=== PATIENT | male | born 1980 | race Caucasian/White ===

== ENCOUNTER 2025-08-04 07:59 | Emergency (ER) | payer SELFPAY ==
[2025-08-04 08:09] VITALS: BP 136/86; PULSE 86; RESP 16; TEMP 36.6; O2SAT 98; BMI 28.8
--- NOTE | 2025-08-04 08:11 | ED_ITS ---
HPI - Neuro Symptoms/Deficit 2 General: Chief Complaint: Neuro Symptoms/Deficit Stated Complaint: Left side Headache diolated left eye this morning Time Seen by Provider: 08/04/25 08:04 History of Present Illness: 44-year-old man with no significant past medical history presents emergency room with a right coronal headache and some blurred vision. He noticed that his left pupil seem to be larger than his right. No other focal motor deficits. No slurred speech. No altered mental status. No fevers. He says he feels like there is something in his eye possibly. Related Data Home Medications ?Medication ?Instructions ?Recorded ?Confirmed ibuprofen 200 mg tablet (Advil) 800 mg PO Q6H PRN Feve r Or Pain 08/04/25 08/04/25 naproxen sodium 220 mg tablet 440 mg PO Q8H PRN Fever Or Pain 08/04/25 08/04/25 (Aleve) Previous Rx's ?Medication ?Instructions ?Recorded polymyxin B sulfate 10,000 1 drp ophthalmic (eye) Q3H 7 days 08/04/25 unit-trimethoprim 1 mg/mL eye drops #10 mL Allergies Allergy/AdvReac Type Severity Reaction Status Date / Time No Known Allergies Allergy Verified 08/04/25 08:12 Review of Systems 2 Narrative: Constitutional symptoms: Negative except as documented in HPI. Skin symptoms: Negative except as documented in HPI. Eye symptoms: Negative except as documented in HPI. ENMT symptoms: Negative except as documented in HPI. Respiratory symptoms: Negative except as documented in HPI. Cardiovascular symptoms: Negative except as documented in HPI. Gastrointestinal symptoms: Negative except as documented in HPI. Genitourinary symptoms: Negative except as documented in HPI. Musculoskeletal symptoms: Negative except as documented in HPI. Neurologic symptoms: Negative except as documented in HPI. Psychiatric symptoms: Negative except as documented in HPI. Endocrine symptoms: Negative except as documented in HPI. Physical Exam 2 Narrative: EXAM NARRATIVE: General: Alert, no acute distress. Skin: Warm, dry. Head: Normocephalic, atraumatic. Neck: Supple, trachea midline. Eye: Extraocular movements are intact. Left pupil is slightly larger than the right but it is reactive. Some slight scleral reddening Ears, nose, mouth and throat: mucosa moist. Cardiovascular: Regular, Normal peripheral perfusion. Respiratory: Lungs are clear to auscultation, respirations are non-labored, breath sounds are equal, Symmetrical chest wall expansion. Gastrointestinal: Soft, Nontender, Non distended Musculoskeletal: Normal ROM, no deformity. Neurological: Alert and oriented, No focal neurological deficit observed. Psychiatric: Cooperative, appropriate mood & affect. Course 2 Vital Signs: Vital signs: Vital Signs Temperature 97.9 F 08/04/25 08:09 Pulse Rate 69 08/04/25 10:54 Respiratory Rate 14 08/04/25 10:12 Blood Pressure 119/85 08/04/25 10:54 Pulse Oximetry 99 08/04/25 10:54 Oxygen Delivery Me thod Room Air 08/04/25 08:42 MDM - Neuro Symptoms/Deficit Medical Decision Making Medical decision making Patient's reason for coming to the emergency room: Headache, eye symptoms Social determinants: Patient is employed I reviewed the patient's medical record. This is the patient's first visit to this emergency room. I reviewed the patient's current home meds Patient takes no chronic medications and has no known chronic medical problems Alternate historians: None Differential diagnosis for patient with focal neurologic deficit(s) includes but not limited to and based on the above HPI, review of systems and physical exam: ischemic stroke, hemorrhagic stroke and embolic stroke secondary to atrial fibrillation), TIA, Burroughs's palsy, metabolic encephalopathy with previous stroke. Orders placed to evaluate differential diagnosis based on the above differential, HPI and physical exam. I also think perhaps this patient just has an injury to his left eye and headache. Consultation: I spoke with Dr. Valencia. She was not on-call but she kindly took my call. She does recommend going ahead and doing a CTA. And basic workup. She recommends Depakote to treat headache. CT head: No acute intracranial process. No intracranial hemorrhage, no evidence of infarct. No evidence of acute fracture. This was reviewed and interpreted by myself the emergency room physician. I also reviewed the radiology report. CTA of the head and neck: No acute abnormalities but there is a small AVM. Radiology recommends follow-up and I discussed this with the patient. This was reviewed and interpreted by myself the emergency room physician. I also reviewed the radiology report. Lab Review: Laboratory results were reviewed and interpreted by myself the emergency room physician. Lab work is unremarkable. No leukocytosis. No anemia. No renal failure. Procedure: UV fluorescein examination of the eye tetracaine applied to the affected eye. once significant analgesia occurred fluorescein dye was applied to the eye Examination with juares lamp reveals no obvious corneal abrasions. No foreign bodies. Assessment of risk: Level of risk: Low risk patient Hospitalization considerations: At this time no consideration of hospitalization Reexamination: Pupils appear more the same size at this point. Headache has improved with Depakote. Assessment and plan: Headache Eye pain ? Depakote in the emergency room. Headache improved - Discharged home - Discussed plan with patient. Answered any questions. - Evaluation and treatment of this problem were appropriate in the emergency setting. Lab Data 08/04/25 08:20 08/04/25 08:[address] 08/04/25 08:12 IMPRESSION: 1. No evidence of intracranial hemorrhage or mass effect. 2. No acute intracranial findings. Notified Catherine Morrison MD at 08/04/2025 9:02 AM. Head/Neck CTA 08/04/25 08:12 IMPRESSION: 1. No significant ICA stenosis. No evidence of carotid dissection. 2. LEFT dominant vertebral artery. 3. No flow-limiting intracranial stenosis. 4. 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 Recommend follow-up neurosurgery/neurology. Small associated cortical draining vein Notified Catherine Morrison MD at 08/04/2025 9:29 AM. Laboratory Results WBC 8.96 10^3/uL (3.29-11.43) 08/04/25 08:20 RBC 5.28 10^6/uL (3.85-5.65) 08/04/25 08:20 Hgb 15.10 g/dL (11.27-16.99) 08/04/25 08:20 Hct 45.2 % (37-53) 08/04/25 08:20 MCV 85.6 fl (82-101) 08/04/25 08:20 MCH 28.6 pg (27-33) 08/04/25 08:20 MCHC 33.4 g/dL (30-55) 08/04/25 08:20 RDW 12.4 % (12.1-15.1) 08/04/25 08:20 Plt Count 323 10^3/cmm (157-399) 08/04/25 08:20 MPV 9.8 fL (7.4-10.4) 08/04/25 08:20 Neut % (Auto) 74.5 % 08/04/25 08:20 Lymph % (Auto) 16.3 % 08/04/25 08:20 [place] % (Auto) 7.0 % 08/04/25 08:20 Eos % (Auto) 1.0 % 08/04/25 08:20 Baso % (Auto) 0.8 % 08/04/25 08:20 Neut # (Auto) 6.67 10^3/uL (1.8-7.7) 08/04/25 08:20 Lymph # (Auto) 1.5 10^3/uL (0.8-4.8) 08/04/25 08:20 [place] # (Auto) 0.6 10^3/uL (0.2-0.9) 08/04/25 08:20 Eos # (Auto) 0.1 10^3/uL (0.0-0.8) 08/04/25 08:20 Baso # (Auto) 0.1 10^3/uL (0.0-0.1) 08/04/25 08:20 Nucleated RBC % (auto) 0 % 08/04/25 08:20 Nucleated RBCs # 0.0 /100WBC 08/04/25 08:20 PT 12.80 SECONDS (12.1-14.9) 08/04/25 08:20 INR 0.90 (0.8-1.2) 08/04/25 08:20 APTT 26.1 SECONDS (23.9-36.7) 08/04/25 08:20 Sodium 139 mmol/L (136-145) 08/04/25 08:20 Potassium 4.2 mmol/L (3.5-5.1) 08/04/25 08:20 Chloride 102 mmol/L (98-107) 08/04/25 08:20 Carbon Dioxide 27 mmol/L (22-29) 08/04/25 08:20 Anion Gap 14.2 (5-19) 08/04/25 08:20 BUN 13 mg/dL (6-20) 08/04/25 08:20 Creatinine 1.0 mg/dL (0.7-1.2) 08/04/25 08:20 GFR Calculation 80.8 mL/min (90-130) L 08/04/25 08:20 Glucose 104 mg/dL (65-115) 08/04/25 08:20 Calculated Osmolality 288 mOsm/kg (285-295) 08/04/25 08:20 Calcium 9.0 mg/dL (8.5-10.5) 08/04/25 08:20 Total Bilirubin 0.4 mg/dL (0.15-1.2) 08/04/25 08:20 AST 18 U/L (0-40) 08/04/25 08:20 ALT 17 U/L (0-41) 08/04/25 08:20 Alkaline Phosphatase 73 U/L (40-130) 08/04/25 08:20 Total Protein 7.6 g/dL (6.6-8.7) 08/04/25 08:20 Albumin 4.6 g/dL (3.5-5.2) 08/04/25 08:20 Globulin 3.0 g/dL (1.3-4.6) 08/04/25 08:20 All radiology interpretation(s) finalized by discharge Discharge Plan Discharge Patient Disposition: Home Clinical Impression: Acute eye pain, Headache Condition: Stable Prescriptions: New polymyxin B sulf-trimethoprim 10,000 unit- 1 mg/mL drops 1 drp ophthalmic (eye) Q3H 7 Days Qty: 10 0RF Rx Instructions: while awake; do not exceed 6 doses in 24 hours No Action naproxen sodium [Aleve] 220 mg Tablet 440 mg PO Q8H PRN (Reason: Fever Or Pain) ibuprofen [Advil] 200 mg Tablet 800 mg PO Q6H PRN (Reason: Fever Or Pain) Discharge Orders: Discharge ED (Routine); Ordered 08/04/25 Ordered By: Catherine Morrison Discharge Diet: Usual diet Discharge Activity: Increase activity as tolerated Patient Instructions: Eye Pain (ED), General Headache (ED), Opioid Safety, Pain Management, Patient Portal & Srikanth Instructions Activity Restrictions/Additional Instructions: On your head CT there was an incidental finding of an AVM. Radiology recommends that you have follow-up with neurology or neurosurgery in the near future. Discussed this with your primary provider Thank you for choosing [facility] for your healthcare needs today. You have been screened and evaluated and felt safe for discharge. Health conditions do change or evolve sometimes and as such it is important that you follow up with your Primary Doctor to be re checked, 3-5 days is a general good time frame for follow up. You are always welcome to return to the ED for re assessment if your symptoms are worsening or you have new concerns Stand Alone Forms: Work/School Release Print Language: Cape Verdean Coding Level of Care Code ED Hoop Punch And Coiler Operator for Chris Ortega
--- NOTE | 2025-08-04 08:12 | CT_ITS ---
WS: [id number] CT HEAD TECHNIQUE: Noncontrast CT of the head obtained from the skullbase to the vertex. Stroke alert not called. CLINICAL INFORMATION: LEFT eye dilation. Headache. Left eye pain. COMPARISON: None. DLP: [address] scans at [facility] use at least one of these dose optimization techniques: automated exposure control; mA and/or kV adjustment per patient size (includes targeted exams where dose is matched to clinical indication); or iterative reconstruction. FINDINGS: No evidence of intracranial hemorrhage or mass effect. Ventricular system and basal cisterns are patent. No extra-axial fluid collections. No evidence of mass or mass effect. Normal swift-white differentiation. Paranasal sinuses and mastoid air cells are well aerated. .Normal visualized soft tissues. CT/CT head thrombolytic 96777 IMPRESSION: 1. No evidence of intracranial hemorrhage or mass effect. 2. No acute intracranial findings. Notified Catherine Morrison MD at 08/04/2025 9:02 AM.
--- NOTE | 2025-08-04 08:12 | CT_ITS ---
WS: [id number] CTA HEAD AND NECK TECHNIQUE: Contrast enhanced CTA of the head and neck with coronal and sagittal reformatted images and maximum intensity projection (MIP) images. NASCET criteria utilized. CLINICAL INFORMATION: Possible stroke COMPARISON: None. DLP: 510.[address] scans at [facility] use at least one of these dose optimization techniques: automated exposure control; mA and/or kV adjustment per patient size (includes targeted exams where dose is matched to clinical indication); or iterative reconstruction. FINDINGS: RIGHT: RIGHT common carotid artery is patent. No significant RIGHT ICA stenosis. RIGHT ICA is patent to the skull base. LEFT: LEFT common carotid artery is patent. No significant LEFT ICA stenosis. LEFT ICA is patent to the skull base. INTRACRANIAL CTA: LEFT dominant vertebral artery. Smaller but patent RIGHT vertebral artery. Basilar artery is patent. Persistent RIGHT FIELD REVIEWER. Normal vascularity to the FIELD REVIEWER territory bilaterally. Normal vascularity to the KAMARI and MCA territories bilaterally. No evidence of proximal flow-limiting intracranial stenosis. Tonsillar calcifications. Prior postoperative changes ACDF C5-6. Small vascular malformation RIGHT frontal lobe anteriorly suspicious for a small AVM nidus measuring 4.6 mm. Small associated cortical draining vein. Recommend follow-up neurosurgery/neurology. CT/CT angio headneck* 64161/43094 IMPRESSION: 1. No significant ICA stenosis. No evidence of carotid dissection. 2. LEFT dominant vertebral artery. 3. No flow-limiting intracranial stenosis. 4. 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 Recommend follow-up neurosurge ry/neurology. Small associated cortical draining vein Notified Catherine Morrison MD at 08/04/2025 9:29 AM.
[2025-08-04 08:41] LABS: INR 0.90 (0.8-1.2); Partial Thromboplastin Time 26.1 SECONDS (23.9-36.7); Prothrombin Time 12.80 SECONDS (12.1-14.9)
[2025-08-04 08:42] VITALS: BP 120/80; PULSE 73; RESP 16; O2SAT 98
[2025-08-04] MEDS: iohexol 350 mg/mL 500 mL Btl (per mL) IV (08:42)
[2025-08-04 08:43] LABS: Hematocrit 45.2 % (37-53); Hemoglobin 15.10 g/dL (11.27-16.99); Mean Corpuscular HGB Conc 33.4 g/dL (30-55); Mean Corpuscular Hemoglobin 28.6 pg (27-33); Mean Corpuscular Volume 85.6 fl (82-101); Nucleated Red Blood Cells % 0 %; Platelet Count 323 10^3/cmm (157-399); Red Blood Count 5.28 10^6/uL (3.85-5.65); White Blood Count 8.96 10^3/uL (3.29-11.43)
[2025-08-04 08:45] LABS: Alanine Aminotransferase 17 U/L (0-41); Albumin Level 4.6 g/dL (3.5-5.2); Alkaline Phosphatase 73 U/L (40-130); Anion Gap 14.2 (5-19); Aspartate Amino Transferase 18 U/L (0-40); Blood Urea Nitrogen 13 mg/dL (6-20); Calcium 9.0 mg/dL (8.5-10.5); Carbon Dioxide 27 mmol/L (22-29); Chloride 102 mmol/L (98-107); Globulin 3.0 g/dL (1.3-4.6); Glucose 104 mg/dL (65-115); Osmolality Calculated 288 mOsm/kg (285-295); Potassium 4.2 mmol/L (3.5-5.1); Sodium 139 mmol/L (136-145); Total Protein 7.6 g/dL (6.6-8.7)
[2025-08-04] MEDS: valproic acid inj 500 MG in sodium chloride 0.9% (plus) 50 ML 200 MG IV (08:52)
[2025-08-04 10:12] VITALS: BP 134/66; PULSE 70; RESP 14; O2SAT 98
[2025-08-04] MEDS: tetracaine 0.5% Op Soln 4 mL Btl 1 DROP EYE-RIGHT (10:16)
--- OUTSIDE RECORDS SUMMARY | 2025-08-04 10:18 | XMS_ITS | Data Portability ---
Author Organization [facility] [place] Acuna, [employer] Address [address] [address] Assessment No assessment recorded. Plan of Treatment Reminders Order Date Submit Date Provider Last Modified By Organization Details Last Modified Time Details Appointments ACUTE VISIT 025 07:20AM WALK-IN Not available Not available Not available Lab None recorde d. Referral None recorde d. Procedures None recorde d. Surgeries None recorde d. Imaging None recorde d. Medication Orders None recorde d. Patient TargetsNo targets recorded. Patient Instructions Encounter Date Encounter Id Patient Instructions Last Modified By Organization Details Last Modified Time 08/04/2025 [id number] After discussion with still having headache and concerns- I will send to ER ephraim carbajal [email or web address] Not available 08/04/2025 08:56:32 Reason for Referral None Reported. Procedures Surgical History Date Name Laterality Status Provider Name and Address Organization Details Recorded Time [facility]/04/20[facility] 08:31:39 Back Surgery [facility] 08/04/2025 08:31:46 operative procedure on upper extremity [facility] 08/04/2025 08:32:05 Imaging Results None recorded. Procedure Notes None recorded. Medical Equipment None Reported. Allergies Allergen ID Allergen Name Allergen Category Reaction Reaction Severity Criticality Documentation Date Start Date Code Code System Note Provider Name and Address Organization Details Recorded Time 54435 acetamino phen / oxycodone medicatio n Not available Not available Not available 08/04/2025 31968 3 RxNorm Nya iniguez [facility] 08:30:42 Medications Name Sig Start Date Stop Date Status Note LastModified by Organization Details LastModified Time Aleve active Not Available Not Availa ble Not Available IBU active Not Available Not Availa ble Not Available Vitals Date Recorded Body height Body mass index (BMI) Body weight Oxygen saturation Oxygen saturation in Arterial blood by Pulse oximetry Heart rate Respiratory rate Body temperature Systolic And Diastolic Provider Name and Address Organization Details Last Updated DateTime 5 175.26 cm 28.8 kg/m2 62384.5 1 g 97 % 97 % 90 /min 16 /min 98.5 [degF] 140/100 mm[Hg] Nya Najera [facility] 08:34:50 Social History Question Answer Notes LastModified by Organizat ion Details LastModified Time Tobacco Smoking Status Current Every Day Smoker Nya iniguez [facility] 08/04/2025 08:31:11 What Was The Date Of Your Most Recent Tobacco Screening? 08/04/2025 [email or web address] Information not available 08/04/2025 Sex: Unknown Functional Status None recorded. Mental Status None recorded. Family History Nothing Reported. Medical History No medical history recorded. Past Encounters Encounter ID Performer Location Encounter Start Date Encounter Closed Date Diagnosis/Indication Diagnosis SNOMED-CT Code Diagnosis ICD10 Code Diagnosis IMO Codes Diagnosis Note [id number] KARIS BARDALES APRN [facility] ([facility]) [address] [place] [address] 08/04/2025 08:21:29 08/04/2025 08:57:57 Acute headache 348984309 R51.9 [id number] Health Concerns Section Related Observation LastModified by Organization Detai ls LastModified Time None Recorded Concern Status LastModified by Organization Details LastModified Time None Recorded Advance Directives Directive None Recorded Payers Insurance Date Sequence Insurance Name Policy Number Policy Springer Covered Member ID Springer Member ID Guarantor Name 08/04/2025 1 *SELF PAY* Leatha Mcdonald Notes Date Note Type Note Provider Name and Address Organization Details Recorded Time 08/04/2025 text/html Eye PainReported by Patient walk in patientpatient is here today for a headache that started on his left side of his head that started at 1am, patient said that his left eye is hurting and is dialated. Patient said that work this morning they took his blood pressure and it was high. KARIS BARDALES, CHIEF STEWARD/STEWARDESS [address] [place], [address], [facility] 08/04/2025 08:57:21
--- OUTSIDE RECORDS SUMMARY | 2025-08-04 10:19 | XMS_ITS | Continuity of Care Document ---
Author Organization [facility] [place] Acuna, [facility] ([facility]) Address [address] [place] [address] Assessment No assessment recorded. Plan of Treatment [...] By Organization Details Last Modified Time 08/04/2025 [id number] After discussion with still having headache and concerns- I will send to ephraim carbajal [email or web address] Not available 08/04/2025 08:56:32 Reason for Referral None Reported. Procedures Surgical History Date Name Laterality Status Provider Name and Address Organization Details Recorded Time operation on neck [facility] 08/04/2025 08:31:39 Back Surgery [facility] [place] [facility] 08/04/2025 08:31:46 operative procedure on upper extremity completed [place] [facility] 08/04/2025 08:32:05 Imaging Results None recorded. Procedure Notes None recorded. Medical Equipment None Reported. Allergies Allergen ID Allergen Name Allergen Category Reaction Reaction Severity Criticality Documentation Date Start Date Code Code System Note Provider Name and Address Organization Details Recorded Time 75535 acetamino phen / oxycodone medicatio n Not available Not available Not available 08/04/2025 85365 3 RxNorm Nya iniguez [facility] 08:30:42 Medications Name Sig Start Date [...] Updated DateTime 5 175.26 cm 28.8 kg/m2 08286.5 1 g 97 % 97 % 90 /min 16 /min 98.5 [degF] 140/100 mm[Hg] Nay Najera [facility] 08:34:50 Social History Question Answer Notes LastModified by Organizat ion Details LastModified Time Tobacco Smoking Status Current Every Day Smoker Nya iniguez [facility] 08/04/2025 08:31:11 What Was The Date Of Your Most Recent Tobacco Screening? 08/04/2025 [email or web address] Information not available 08/04/2025 Sex: Unknown Functional Status None recorded. Mental Status None recorded. Family History Nothing Reported. Medical History No medical history recorded. Past Encounters Encounter ID Performer Location Encounter Start Date Encounter Closed Date Diagnosis/Indication Diagnosis SNOMED-CT Code Diagnosis ICD10 Code Diagnosis IMO Codes Diagnosis Note [id number] KARIS BARDALES APRN [facility] ([facility]) [address] [place] [address] 08/04/2025 08:21:29 08/04/2025 08:57:57 Acute headache [id number] R51.9 [id number] Health Concerns Section Related Observation LastModified by Organization Detai ls LastModified Time None Recorded Concern Status LastModified by Organization Details LastModified Time None Recorded Payers Encounter Date Sequence Insurance Name Policy Number Policy [...] pressure and it was high. KARIS BARDALES, ACCOUNTING MANAGER ASSISTANT CONTROLLER [address] [place], [address], [facility], [place] 08/04/2025 08:57:21
[2025-08-04 10:54] VITALS: BP 119/85; PULSE 69; O2SAT 99
== END 2025-08-04 11:18 | disposition home or self-care (01) ==
PROVIDERS: Emergency Provider Emergency Medicine
DX: H57.12 Ocular pain, left eye (principal); R51.9 Headache, unspecified
CPT/HCPCS: 36415; 70450; 70496; 70498; 80053; 85025; 85610; 85730; 96374; 99285; J3490; J9999